=== PATIENT | female | born 1945 | race Caucasian/White ===

== ENCOUNTER → 2020-06-29 | Outpatient (CLI) | payer MEDICARE, MEDICAID ==
[~2020-06-29] MED LIST: ACIPHEX20 MG PO; APAP/OXYCODONE1 TA2 PO; HYDR12.5C PO; HYDROCODONE BIT1 T11 PO; LISINOPRIL/HCTZ1 TA3 PO; NORCO 325 MG-101 TAB PO; PERCOCET 325 MG1 TA2 PO; PRILOSEC20 MG PO; STOOL SOFTENER1 TAB PO; VICO75300 PO
== END | disposition home or self-care (01) ==
LOC: US 14:00
PROVIDERS: ATTEND Internal Medicine
DX: I65.23 Occlusion and stenosis of bilateral carotid arteries (principal)

== ENCOUNTER 2021-12-19 12:24 | Emergency (ER) | payer MEDICARE, MEDICAID | END 2021-12-19 12:38 | disposition left against medical advice (07) | LOC: ED 12:24 | DX: Z53.21 Procedure and treatment not carried out due to patient leaving prior to being seen by health care provider (principal) ==

== ENCOUNTER 2022-01-12 11:35 | Emergency (ER) | payer MEDICARE, MEDICAID ==
[~2022-01-12] VITALS: Wt 58.5 kg
== END 2022-01-12 15:49 | disposition home or self-care (01) ==
LOC: ED 11:35
DX: S20.211A Contusion of right front wall of thorax, initial encounter (principal); M25.561 Pain in right knee; M25.532 Pain in left wrist; Z91.030 Bee allergy status; Z88.0 Allergy status to penicillin; Z79.899 Other long term (current) drug therapy; Z90.710 Acquired absence of both cervix and uterus; W19.XXXA Unspecified fall, initial encounter; Y93.89 Activity, other specified; Y92.89 Other specified places as the place of occurrence of the external cause; Y99.8 Other external cause status